=== PATIENT | female | born 1955 | race Caucasian/White ===

== ENCOUNTER → 2023-07-19 06:49 | Outpatient (REF) | payer MEDICARE, OTHER, SELFPAY | LOC: HWWDC 06:49 | PROVIDERS: ATTENDING PHYSICIAN Family Medicine | DX: Z12.31 Encounter for screening mammogram for malignant neoplasm of breast (principal) | CPT/HCPCS: 77063; 77067 ==

== ENCOUNTER → 2023-07-25 08:26 | Outpatient (REF) | payer MEDICARE, OTHER, SELFPAY | LOC: WDC 08:26 | PROVIDERS: ATTENDING PHYSICIAN Family Medicine | DX: R92.8 Other abnormal and inconclusive findings on diagnostic imaging of breast (principal) | CPT/HCPCS: 77065 ==

== ENCOUNTER → 2023-07-31 06:42 | Outpatient (REF) | payer MEDICARE, OTHER, SELFPAY ==
--- NOTE | 2023-07-31 09:17 | OID.BR.INTR ---
KAELYND Breast Navigator - Initial
- -
Date of Contact: 07/31/23
Met with patient. Patient given written information on navigator services available at [facility]. Will follow up as needed per protocol.
== END ==
LOC: WDC 06:42
PROVIDERS: ATTENDING PHYSICIAN Family Medicine
DX: R92.1 Mammographic calcification found on diagnostic imaging of breast (principal)
CPT/HCPCS: 88305; 19081; 76098; A4648

== ENCOUNTER → 2023-08-03 08:15 | Outpatient (REF) | payer MEDICARE, OTHER, SELFPAY | LOC: RAD 08:15 | PROVIDERS: ATTENDING PHYSICIAN Internal Medicine Gastroenterology; FAMILY PHYSICIAN Family Medicine | DX: R13.19 Other dysphagia (principal); K76.0 Fatty (change of) liver, not elsewhere classified | CPT/HCPCS: 74221; 76700 ==

== ENCOUNTER → 2024-02-22 06:20 | Day surgery (SDC) | payer MEDICARE, OTHER, SELFPAY | LOC: GI 06:20 | PROVIDERS: ATTENDING PHYSICIAN Internal Medicine Gastroenterology | DX: K22.89 Other specified disease of esophagus (principal); K44.9 Diaphragmatic hernia without obstruction or gangrene; K31.89 Other diseases of stomach and duodenum; R13.10 Dysphagia, unspecified | CPT/HCPCS: 43239; 88305; 88342 ==

== ENCOUNTER → 2024-08-22 14:48 | Outpatient (REF) | payer MEDICARE, OTHER, SELFPAY | LOC: WDC 14:48 | PROVIDERS: ATTENDING PHYSICIAN Family Medicine | DX: Z12.31 Encounter for screening mammogram for malignant neoplasm of breast (principal) | CPT/HCPCS: 77063; 77067 ==

== ENCOUNTER 2024-09-30 14:59 | Inpatient (IN) | payer MEDICARE, OTHER, SELFPAY ==
[2024-09-30] VITALS (7 sets, daily range): BP systolic 114–167; BP diastolic 69–93; BMI 28.3; BMI 26.9
--- NOTE | 2024-09-30 09:52 | ED.GENMED ---
History of Present Illness
General
Chief Complaint: Musculo-Skeletal Complaint
Source: patient, spouse and ambulance crew
Exam Limitations: none
Time Seen by Provider: 09/30/24 09:43
Nursing documentation reviewed up to this point in time: agreed with
History of Present Illness
History of Present Illness:
The patient is a 69-year-old female who presented with leg pain after a fall. She reports losing her balance while on the steps due to being startled by her dog. She believes she twisted her leg and landed on her side. The patient heard a 'pop' at
the time of injury. There is no pain reported in the head, neck, or pelvis, and she did not experience loss of consciousness. She does not report additional pain beyond her leg, although she has a history of neuropathy affecting her ability to sense
pain. Upon examination, she points to pain located around her upper leg. Initial assessment shows that she is neurovascularly intact, with good pulse and some movement in the toes.
The patient mentions that she was administered fentanyl for pain and agreed to receive additional medication to manage pain during imaging. She will be given Dilaudid to ensure appropriate pain control before undergoing X-ray imaging to assess for
fractures in the femur or hip.
Past History
Past History
ED Past Medical History: HTN and Hypercholesterolemia
ED Past Surgical History: Cholecystectomy and Orthopedic
Social History
Tobacco: Non-smoker
Personal:
Living: with family
Review of Systems
Review of Systems
Allergies reviewed?: Yes
All Other Systems: ROS reviewed and negative except as documented in HPI and ROS
Phy Exam
Physical Exam
Physical Exam:
GENERAL: Alert , in no apparent distress
EYE: pupils equal and reactive
NECK: Supple, no significant adenopathy.
ENT: o/p clr, mmm.
CARDIAC: Regular rate and rhythm .
LUNGS: Clear breath sounds bilaterally, no acute respiratory distress, no wheezes/rales/rhonchi
ABDOMEN: Soft, without focal tenderness, no r/g, no cvat
NEUROLOGICAL: Alert and oriented, no focal neuro deficits
SKIN: Warm and dry, skin intact.
MUSCULOSKELETAL: Left leg in a traction splint, tenderness throughout the mid thigh region no pain to the pelvis no pain to the knee moreno able to move the ankle and toes good distal pulses no edema, well perfused.
PSYCH: Normal and appropriate interaction.
Course
Orders/Labs/Results
Orders:
Orders
09/30/24 09:42
Femur, Left 2 View [CR Femur - Left Min 2 Vw] Urgent
Comment:
Reason For Exam: pain, injury, deformity
09/30/24 09:43
Tibia/Fibula, Left 2 View [CR Leg Tibia/fibula Left 2 Vw] Urgent
Comment:
Reason For Exam: fall
09/30/24 09:46
Pelvis, 1 or 2 Views CR [CR Pelvis - 1 Or 2 Views ] Urgent
Comment:
Reason For Exam: left hip femur pain after fall
09/30/24 09:53
HYDROmorphone [Dilaudid] 0.5 mg IV NOW STA
09/30/24 10:02
BMP [Basic Metabolic Panel] Urgent
CBC/With Diff [Complete Blood Count/With Diff] Urgent
09/30/24 11:13
CT Pelvis W/o Iv Contrast Urgent
Comment:
Reason For Exam: left femur fx eval for femoral neck fx
09/30/24 11:42
Fentanyl Citrate/Pf [Sublimaze] 65 mcg IV NOW STA
Abnormal Lab Results
09/30/24
10:02
Abs Immat Gran (auto) 0.1 H 10^3/uL
(0-0.05)
Absolute Monos (auto) 0.8 H 10^3/uL
(0.1-0.6)
Absolute Eos (auto) 0.8 H 10^3/uL
(0-0.7)
Immature Gran % 0.6 H %
(0-0.5)
Eosinophils % 8.5 H %
(0-6)
Chloride 108 H mmol/L
(98-107)
BUN 20 H mg/dl
(7-17)
Glucose 122 H mg/dl
(70-99)
09/30/24 10:02
09/30/24 10:02
Vital Signs
Initial and Last Documented VS:
Initial Vital Signs
BP
151/83
09/30/24 09:30
Last Documented Vital Signs
Temp Pulse Resp BP Pulse Ox
97.9 F 84 17 157/93 96
09/30/24 09:32 09/30/24 11:00 09/30/24 11:00 09/30/24 10:00 09/30/24 10:15
Procedures
Splinting/Sling Placement
Left Leg:
Procedure completed by: Myself
Pre-splint extermity exam: neurovascular intact
Type of splint: posterior long leg
Splint material: fiberglass
Splint checked by provider?: Yes
Normal distal neurovascular exam?: Yes
MDM/Problems Addressed
MDM/Problems Addressed:
69-year-old female presenting after a fall landing hitting her leg directly denies additional concerns. Neurovascular intact to the left leg does have tenderness to the femur plan for x-rays for further assessment. X-ray showing midshaft femur
fracture. Case discussed with Ortho plan to take to the OR tomorrow morning. Placed in a long-leg splint otherwise neuro vastly intact. Stable throughout ER stay.
*Critical Care Note
Total Time (30-74mins, 75-104mins- exclusive of procedures): Not Applicable
ED Attending Note
-
Portions of this chart may have been created with voice recognition software.� Occasional wrong word or��sound alike� substitutions may have occurred due to the inherent limitations of voice recognition software.
Discharge Plan
Departure
Patient Disposition: Admit
Date of Disposition: 09/30/24
Time of Disposition: 11:58
Admit to: Med/Surg
Admit to doctor: Mandy
Presentation/result/management discussed w/ accepting MD/DO: Hospitalist
Patient with high blood pressure during this ER visit?: No
Condition: Good
Covid-19: Not Applicable
Discharge Problem:
Femur fracture
Prescriptions:
No Action
atorvastatin 40 MG tablet
40 mg PO QPM
enalapril maleate 10 MG tablet
20 mg PO BID
diltiazem HCl 240 MG capsule,extended release 24 hr
240 mg PO DAILY
hydrochlorothiazide 12.5 MG capsule
12.5 mg PO DAILY
Referrals:
Floridalma Mckeon MD [Family Provider, Family Practice]
Interventions
Interventions:
*Risk Screen - Suicide Last Done: 09/30/24 09:32
*General Assessment Last Done: 09/30/24 09:32
*Neglect/Abuse Screening Last Done: 09/30/24 09:32
*ED- Fall Risk Assessment Last Done: 09/30/24 09:32
*ED COVID-19 Vaccine History Last Done: 09/30/24 09:32
ED-Musculoskeletal Assessment Last Done: 09/30/24 09:56
Discharge Date and Time
Print Language: TOGOLESE
[2024-09-30] MEDS: DILAUDID 0.5 MG IV (10:01)
[2024-09-30 10:12] LABS: % Basophils 0.6 % (0-2); % Eosinophils 8.5 % (0-6); % Immature Granulocytes 0.6 % (0-0.5); % Lymphocytes 23.4 % (20.5-51.1); % Monocytes 8.6 % (1.7-9.3); % Neutrophils 58.3 % (42.2-75.2); Absolute Basophils 0.1 10^3/uL (0-0.2); Absolute Eosinophils 0.8 10^3/uL (0-0.7); Absolute Immature Granulocytes 0.1 10^3/uL (0-0.05); Absolute Lymphocytes 2.2 10^3/uL (1.2-3.4); Absolute Monocytes 0.8 10^3/uL (0.1-0.6); Absolute Neutrophils 5.5 10^3/uL (1.4-6.5); Hematocrit 43.3 % (37.0-47.0); Hemoglobin 14.3 g/dL (12.0-16.0); Mean Corpuscular Hgb 29.4 pg (27.0-31.0); Mean Corpuscular Volume 88.9 fL (81.0-99.0); Mean Platelet Volume 10.4 fL (7.4-10.4); Nucleated Red Blood Cells % 0 %; Platelet Count 299 10^3/uL (130-400); Red Blood Cell Count 4.87 10^6/uL (4.20-5.40); Red Cell Dist. Width 13.4 % (11.5-14.5); White Blood Cell Count 9.5 10^3/uL (4.8-10.8)
[2024-09-30 10:39] LABS: Blood Urea Nitrogen 20 mg/dl (7-17); Calcium 9.5 mg/dl (8.4-10.2); Carbon Dioxide 28 mmol/L (22-30); Chloride 108 mmol/L (98-107); Estimated Creatinine Clearance 46 ml/min; Glucose 122 mg/dl (70-99); Potassium 4.2 mmol/L (3.5-5.1); Sodium 143 mmol/L (135-145); eGFR > 60.00
[2024-09-30] MEDS: SUBLIMAZE 65 MCG IV (11:46)
--- NOTE | 2024-09-30 12:19 | HPS.HSE ---
Family Physician
-
Family Physician: Floridalma Mckeon MD
Chief Complaint
-
LLE pain
History of Present Illness
69F HTN HLD Osteoporosis Neuropathy LE's b/l up to knees p/w LLE pain swelling following fall. Startled by her dog, she twisted and landed on her side with an associate 'pop' sound. Unable to get up from fall, patient contacted EMS services. VSS,
labs unremarkable, imaging noted left midshaft spiral fracture femur.
Medical History
Past Medical History
Past Medical History: Reports Other (as above)
Past Surgical History: Reports Other (as above)
Social History
Tobacco: Non-smoker
Alcohol: None
Drug: None
Personal:
Living: With Family
Family History
Family History: CAD (Both Parentes)
Allergies / Home Medications
Allergies reflects when Allergies were last updated in [facility].
Home Medications with original date entered in [facility]
Allergy/Medication List:
Allergies
Allergy/AdvReac Type Severity Reaction Status Date / Time
No Known Allergies Allergy Verified 09/30/24 09:30
Home Medications
atorvastatin 40 mg tablet 40 mg PO QPM High Cholesterol 06/01/13
diltiazem HCl 240 mg capsule,24 hr,extended release 240 mg PO DAILY Blood Pressure 06/01/13
enalapril maleate 10 mg tablet 20 mg PO BID Blood Pressure 06/01/13
hydrochlorothiazide 12.5 mg capsule 25 mg PO DAILY Blood Pressure 06/01/13
aspirin 81 mg tablet,delayed release 81 mg PO HS Heart Disease/Condition 09/30/24
calcium carbonate (Calcium 600) 600 mg PO DAILY Supplement 09/30/24
cholecalciferol (vitamin D3) 50 mcg (2,000 unit) tablet (Vitamin D3) 50 mcg PO DAILY Supplement 09/30/24
docusate sodium 100 mg capsule (Colace) 300 mg PO HS Constipation 09/30/24
omeprazole 20 mg capsule,delayed release 20 mg PO DAILY Gastrointestinal Issue 09/30/24
psyllium 1 packet PO DAILY Constipation 09/30/24
Review of Systems
-
A 12 point ROS was completed and negative except as noted: Yes
Constitutional: Reports Other (as below)
Physical Exam
Vital Signs
Vital Signs
Temp Pulse Resp BP Pulse Ox
97.9 F 81 16 157/93 97
09/30/24 09:32 09/30/24 12:00 09/30/24 12:00 09/30/24 10:00 09/30/24 12:00
Physical Exam
General: Other (as below)
Laboratory Results
-
09/30/24 10:02
09/30/24 10:02
Impression/Plan
-
ROS
General: Denies fever chills night sweats unexpected weight loss
Neuro: Reports history Neuropathy loss of sensation LE's b/l up to knees Denies seizure shaking loss of consciousness dizziness vertigo
Psych: denies depression hallucinations confusion manic episodes
Endocrine: Denies polyuria polydipsia polyphagia heat/cold intolerance
HEENT: Denies blindness visual disturbances epistaxis
Pulmonary: denies coughing hemoptysis sneezing sob dyspnea on exertion
Cardiovascular: denies chest pain palpitations leg swelling
Hematology: denies signs symptoms of anemia easy bruising/bleeding
Gastrointestinal: reports constipation denies nausea vomiting diarrhea hematemesis hematochezia melena
Genito-Urinary: denies retention incontinence dysuria
Musculoskeletal: LLE pain
Dermatology: denies rash laceration bruising
Physical Exam
General: No pallor, cyanosis, or jaundice.
HEENT: Throat clear. PERRLA Normocephalic atraumatic
NECK: Supple. No JVD Carotid Bruits
RESPIRATORY: Lungs clear to auscultation. No crackles wheezes stridor
CVS: S1, S2 normal. RRR. No murmur, rub or gallop.
ABDOMEN: Soft, non-tender. No distension. BS+/normal.
EXTREMITIES: LLE swelling, splint in place, LLE shorter compared to RLE
MANAGER SEMICONDUCTOR: AOx3 conversant coherent
IMPRESSION:
69F HTN HLD Osteoporosis Neuropathy LE's b/l up to knees p/w LLE pain swelling following fall. Startled by her dog, she twisted and landed on her side with an associate 'pop' sound. Unable to get up from fall, patient contacted EMS services. VSS,
labs unremarkable, imaging noted left midshaft spiral fracture femur.
PLAN:
#left midshaft spiral fracture femur following mechanical fall
med surg admit
Orthopedic eval
NPO after midnight for OR as per Orthopedic
check pre-op EKG
Cardiac eval requested pre-op cardiac risk stratification
pain control prn IV dilaudid mod severe pain, Tylenol prn mild pain
#Constipation
bowel regimen
#HTN
cont home Cardizem Enalapril HCTZ w holding parameters
#HLD
cont statin
DVT ppx SCD
GI ppx Protonix
Full Code
Discussed with patient. Offered to update family, patient declined, reported comfortable updating family herself.
I spent a total of 76 minutes with the patient or on the floor. More than 50% of this time involved counseling and coordination of care.
--- NOTE | 2024-09-30 15:39 | CON.CAR ---
Addendum entered and electronically signed by Benji Gonzalez MD 09/30/24 19:38:
69-year-old woman admitted today with a spiral fracture of the proximal to mid left femur after a mechanical fall.
PMH/PSH: Hypertension, hyperlipidemia, osteoporosis, peripheral neuropathy, MAFLD, diverticulitis, cholecystectomy, herniorrhaphy, breast biopsy, other minor procedures
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
Meds allergies per summary screen
ROS: rest of history per Ambika Francois as documented below
167/87, 95, 18, Patient said she is not in distress, as long as she is still. Head and neck exam unremarkable, lungs are clear, regular rate and rhythm without murmur, abdomen benign, left leg in immobilizer, without substantial edema
ECG pending
Echo July 2022: EF 55 to 60% no significant valve disease
Exercise treadmill test June 2022: 6 [address] protocol normal [address] segment response to exercise
Normal CBC, normal BMP
Impression:
See below as per Ambika Francois. Reviewed in detail and agree, unless otherwise specified.
Plan:
From a cardiac standpoint, she is stable and can proceed to open reduction and internal fixation of left femoral fracture at acceptable cardiac risk.
She is tachycardia, suspect mild volume depletion. Will administer IV fluid.
Original Note:
Consultation
Consultation Request
Date/Time Consultation Requested: 09/30/2024
Date/Time Consultation Performed: 09/30/2024
Requesting Provider: Dr. Osei
Performing Provider: Ambika Francois PA-C for Dr. KELY Gonzalez
Reason for Consultation: Preoperative clearance
Medical History
-
History of Present Illness:
Patient is a 69-year-old female with past medical history significant for hypertension, hyperlipidemia, osteoporosis, peripheral neuropathy, diverticulitis and fatty liver who presents to emergency department 09/30/2024 after suffering mechanical
fall. Patient reports she was on the steps when her 120 pound Rottweiler dog pushed her resulting in mechanical fall where she heard a pop and then had severe pain of her left leg. She was brought in by EMS. X-ray and pelvis CT demonstrated
spiral fracture from proximal to mid femur. Patient was seen by orthopedics and plan is for surgical repair on 10/01/2024. Patient reports she has no prior cardiac history with unremarkable stress test and echocardiogram in 2022. She does have a
family history with mom and dad both having high blood pressure and heart issues in their 70s. Prior to her fall she reports she was fairly active around the house and in the yard with gardening. She is able to walk up and down a flight of steps
without having to stop. She denies having exertional chest pain, shortness of breath, dizziness, lightheadedness, syncope or palpitations.
Past medical history:
Hypertension
Hyperlipidemia
Osteoporosis
Peripheral neuropathy
Diverticulitis
Fatty liver
Past Medical History
Past Medical History: Other (See HPI)
Past Surgical History: Cholecystectomy, Orthopedic (Ganglion cyst removal of left foot) and Other (Left inguinal hernia repair, wisdom teeth extraction, left breast biopsy)
Social History
Tobacco: Non-Smoker
Alcohol: None
Drug: None
Personal:
Living: With Family
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
Family History
Family History: Other (Father had hypertension and CAD, at 75. Mom had hypertension and CAD at 79)
Allergies / Home Medications
Allergy/AdvReac Type Severity Reaction Status Date / Time
No Known Allergies Allergy Verified 09/30/24 09:30
�Medication �Instructions �Recorded �Confirmed �Type
atorvastatin 40 mg tablet 40 mg PO QPM High Cholesterol 06/01/13 09/30/24 History
diltiazem HCl 240 mg capsule,24 240 mg PO DAILY Blood Pressure 06/01/13 09/30/24 History
hr,extended release
enalapril maleate 10 mg tablet 20 mg PO BID Blood Pressure 06/01/13 09/30/24 History
hydrochlorothiazide 12.5 mg capsule 25 mg PO DAILY Blood Pressure 06/01/13 09/30/24 History
aspirin 81 mg tablet,delayed 81 mg PO HS Heart Disease/Condition 09/30/24 09/30/24 History
release
calcium carbonate (Calcium 600) 600 mg PO DAILY Supplement 09/30/24 09/30/24 History
cholecalciferol (vitamin D3) 50 50 mcg PO DAILY Supplement 09/30/24 09/30/24 History
mcg (2,000 unit) tablet (Vitamin
D3)
docusate sodium 100 mg capsule 300 mg PO HS Constipation 09/30/24 09/30/24 History
(Colace)
omeprazole 20 mg capsule,delayed 20 mg PO DAILY Gastrointestinal 09/30/24 09/30/24 History
release Issue
psyllium 1 packet PO DAILY Constipation 09/30/24 09/30/24 History
Review of Systems
-
History Source: Patient
All other systems: Negative unless noted
Physical Exam
Vital Signs
Temp Pulse Resp BP Pulse Ox
98.1 F 92 18 114/69 96
09/30/24 15:36 09/30/24 15:36 09/30/24 15:36 09/30/24 15:36 09/30/24 15:36
GEN: No distress, awake, Ox3, lying in bed
HEENT: supple, anicteric, mmm
LUNGS: CTA anteriorly, no wheezes/rales
CV: Reg, S1/S2, no murmur, rub or gallop
ABD: soft, BS+, NT/ND
EXT: Left leg in soft cast/Hermes wrap, trace edema left lower extremity, no edema on right
NEURO: Gross non-focal
SKIN: No rash, warm, dry, pink
Lab Results
09/30/24 10:02
09/30/24 10:02
Impression / Plan
-
PCP: Floridalma Mckeon MD
Family Physician: Floridalma Mckeon MD
Impression:
Presented 09/30/2024 with mechanical fall and left leg pain
Spiral fracture from proximal to mid left femur
Preoperative cardiac risk assessment
Hypertension
Hyperlipidemia
Osteoporosis
Peripheral neuropathy
Diverticulitis
Fatty liver
Treadmill exercise stress test 07/18/2022: 6:00 on Jesus protocol, 7 METS, 90% PMHR. EKG negative for ischemia. Normal blood pressure response. Occasional PACs and PVCs. Average exercise tolerance. DTS +6
Echocardiogram 08/15/2022: EF 55 to 60%. Normal regional wall motion. No significant valvular disease
- Presented 09/30/2024 with mechanical fall and left leg pain. X-ray/CT demonstrated spiral fracture from proximal to mid left femur. Seen by orthopedics with plan for surgical repair in OR on 10/01/2024
- Patient has no prior history of coronary artery disease. She denies chest pain or shortness of breath with good functional capacity prior to fall.
- Check pre-op EKG
- Echocardiogram in July 2022 showed preserved ejection fraction with no regional wall motion abnormalities and no significant valvular disease
- Treadmill exercise stress test in June 2022 showed average exercise tolerance with normal blood pressure response, occasional PACs and PVCs and no evidence of exercise-induced ischemia. DTS +6.
- Patient is low cardiac risk and may proceed with OR 10/01/2024.
- Monitor patient on telemetry postoperatively
- History of hypertension maintained on diltiazem 240 mg and enalapril 20 mg twice a day as outpatient. Patient reports to me she was not on HCTZ prior to admission. Would hold for now given she is at increased risk for blood loss from surgery and
femur fracture. Monitor blood pressure closely postoperatively.
- Continue atorvastatin for hyperlipidemia
HPI 09/30/2024:
Patient is a 69-year-old female with past medical history significant for hypertension, hyperlipidemia, osteoporosis, peripheral neuropathy, diverticulitis and fatty liver who presents to emergency department 09/30/2024 after suffering mechanical
fall. Patient reports she was on the steps when her 120 pound Rottweiler dog pushed her resulting in mechanical fall where she heard a pop and then had severe pain of her left leg. She was brought in by EMS. X-ray and pelvis CT demonstrated
spiral fracture from proximal to mid femur. Patient was seen by orthopedics and plan is for surgical repair on 10/01/2024. Patient reports she has no prior cardiac history with unremarkable stress test and echocardiogram in 2022. She does have a
family history with mom and dad both having high blood pressure and heart issues in their 70s. Prior to her fall she reports she was fairly active around the house and in the yard with gardening. She is able to walk up and down a flight of steps
without having to stop. She denies having exertional chest pain, shortness of breath, dizziness, lightheadedness, syncope or palpitations.
Data Reviewed
-
EKG: Report Reviewed by me, Discussed with Physician and Discussed with Patient
Radiology: Report Reviewed by me, Discussed with Physician and Discussed with Patient
CT Scan: Report Reviewed by me, Discussed with Physician and Discussed with Patient
Labs: Labs Reviewed by me, Discussed with Physician and Discussed with Patient
Old Records: Reviewed
[2024-09-30] MEDS: LIPITOR 40 MG PO (16:48)
[2024-09-30] MEDS: PROTONIX 40 MG PO (16:48)
--- NOTE | 2024-09-30 17:03 | CON.ORTHO ---
Consultation
-
Date/Time Consultation Performed: 09/30/2024 5 PM
Consultation - Orthopedics
History
HPI: 69-year-old female history of peripheral neuropathy presented to the emergency department complaints of left leg pain and inability to bear weight. She was subsequently diagnosed with a left femoral shaft fracture. She was placed in a
long-leg splint admitted to the hospitalist service. Orthopedics was consulted for further evaluation and treatment. This afternoon patient reports that she is comfortable at rest in splint. She reports that her dog knocked her over and she felt
a crack in her left leg inability to bear weight. She is accompanied today by her . She reports baseline peripheral neuropathy. Denies history of diabetes.
Allergies / Home Medications
Past medical history: Hypertension, hyperlipidemia, osteoporosis, peripheral neuropathy, diverticulitis, fatty liver
Past surgical history: Cholecystectomy, ganglion cyst removal left foot, left inguinal hernia repair, left breast biopsy, wisdom teeth extraction
Social history: Non-smoker, lives at home with , retired
Family history: Not pertinent
Allergy/AdvReac Type Severity Reaction Status Date / Time
No Known Allergies Allergy Verified 09/30/24 09:30
�Medication �Instructions �Recorded
atorvastatin 40 mg tablet 40 mg PO QPM High Cholesterol 06/01/13
diltiazem HCl 240 mg capsule,24 240 mg PO DAILY Blood Pressure 06/01/13
hr,extended release
enalapril maleate 10 mg tablet 20 mg PO BID Blood Pressure 06/01/13
hydrochlorothiazide 12.5 mg capsule 25 mg PO DAILY Blood Pressure 06/01/13
aspirin 81 mg tablet,delayed 81 mg PO HS Heart Disease/Condition 09/30/24
release
calcium carbonate (Calcium 600) 600 mg PO DAILY Supplement 09/30/24
cholecalciferol (vitamin D3) 50 50 mcg PO DAILY Supplement 09/30/24
mcg (2,000 unit) tablet (Vitamin
D3)
docusate sodium 100 mg capsule 300 mg PO HS Constipation 09/30/24
(Colace)
omeprazole 20 mg capsule,delayed 20 mg PO DAILY Gastrointestinal 09/30/24
release Issue
psyllium 1 packet PO DAILY Constipation 09/30/24
Vital Signs / Lab Results
Temp Pulse Resp BP Pulse Ox
98.3 F 95 18 167/87 97
09/30/24 16:23 09/30/24 16:23 09/30/24 16:23 09/30/24 16:23 09/30/24 16:23
09/30/24 10:02
09/30/24 10:02
10 point review systems reviewed and negative unless otherwise stated
General: Pleasant, no acute distress at rest
Musculoskeletal left lower extremity
Splint in place
Skin intact in exposed skin
Moderate swelling to the thigh
Thigh soft compressible
Positive EHL, FHL, sensation intact to light touch in all dispositions distally although diminished at baseline per patient
Brisk cap refill
No other areas of bony tenderness palpation or crepitus along bones or joints after she examination
Diagnostic studies
X-rays left femur show fairly simple transverse displaced diaphyseal femoral shaft fracture fracture. CT scan pelvis shows no ipsilateral femoral neck fracture
Assessment / Plan
69-year-old female status post mechanical fall left displaced femoral shaft fracture. Had a long detail discussion with the patient and her regarding diagnosis and treatment options. Discussed postsurgical nonsurgical options. After
discussion with me she elected to proceed with operative fixation of the left femoral shaft fracture to include intramedullary nail fixation. We discussed risks benefits and alternatives to surgery. Discussed the usual expected perioperative
postoperative course. After discussion written informed consent was obtained
Nonweightbearing left lower extremity in splint
N.p.o. midnight
Please hold DVT prophylaxis in preparation for OR
Medical management per primary team
Plan: 2 OR tomorrow for operative fixation left femoral shaft fracture pending OR availability medical clearance
[2024-09-30] MEDS: LR 1000 IV (20:57)
[2024-09-30] MEDS: VASOTEC 20 MG PO (20:59)
[2024-09-30] MEDS: SENOKOT-S 1 TABLET PO (21:00)
[2024-10-01] VITALS (8 sets, daily range): BP systolic 114–157; BP diastolic 66–84
[2024-10-01] MEDS: DILAUDID 0.5 MG IV ×2 (03:58→15:36)
[2024-10-01] MEDS: ZOFRAN 4 MG IV (05:06)
[2024-10-01 06:07] LABS: Glucose - Point of Care 103 mg/dl (70-99)
--- NOTE | 2024-10-01 06:32 | W.PN.HOSP.TC ---
Today's Communication/Plan
-
see a/p
Assessment / Plan
Assessment / Plan
Physical Exam
General: No pallor, cyanosis, or jaundice.
HEENT: Throat clear. PERRLA Normocephalic atraumatic
NECK: Supple. No JVD Carotid Bruits
RESPIRATORY: Lungs clear to auscultation. No crackles wheezes stridor
CVS: S1, S2 normal. RRR. No murmur, rub or gallop.
ABDOMEN: Soft, non-tender. No distension. BS+/normal.
EXTREMITIES: LLE swelling, splint in place, LLE shorter compared to RLE
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
IMPRESSION:
69F HTN HLD Osteoporosis Neuropathy LE's b/l up to knees p/w LLE pain swelling following fall. Startled by her dog, she twisted and landed on her side with an associate 'pop' sound. Unable to get up from fall, patient contacted EMS services. VSS,
labs unremarkable, imaging noted left midshaft spiral fracture femur.
PLAN:
#left midshaft spiral fracture femur following mechanical fall
#Traumatic fracture likely osteoporosis related
med surg admit
Orthopedic eval
NPO for OR as per Orthopedic
EKG reviewed
Cardiac eval appreciated acceptable cardiac risk for surgical intervention
pain control prn IV dilaudid mod severe pain, Tylenol prn mild pain
#Constipation
bowel regimen
#HTN
cont home Cardizem Enalapril w holding parameters
#HLD
cont statin
DVT ppx SCD
GI ppx Protonix
Full Code
I spent a total of 40 minutes with the patient or on the floor. More than 50% of this time involved counseling and coordination of care.
Anticipated Discharge: > 48 hours
Subjective/Interval History
-
Date of Service: October 01, 2024
Objective Data
-
Labs:
Laboratory Results
10/01/24
06:00
WBC Pending
Hgb Pending
Hct Pending
Plt Count Pending
Sodium Pending
Potassium Pending
Chloride Pending
Carbon Dioxide Pending
BUN Pending
Creatinine Pending
Glucose Pending
Calcium Pending
Vital Signs:
Vital Signs
Temp Pulse Resp BP Pulse Ox
98.7 F 90 18 140/83 97
09/30/24 23:25 09/30/24 23:25 09/30/24 23:25 09/30/24 23:25 09/30/24 23:25
I&O
09/29/24 09/30/24 10/01/24
06:59 06:59 06:59
Output Total 600 / 600
Balance -600 / -600
[2024-10-01 07:34] LABS: Hematocrit 38.9 % (37.0-47.0); Mean Corp Hgb Conc. 33.4 g/dL (33.0-37.0); Mean Corpuscular Hgb 29.4 pg (27.0-31.0); Mean Platelet Volume 10.2 fL (7.4-10.4); Platelet Count 212 10^3/uL (130-400); Red Blood Cell Count 4.42 10^6/uL (4.20-5.40); Red Cell Dist. Width 13.5 % (11.5-14.5); White Blood Cell Count 10.8 10^3/uL (4.8-10.8)
[2024-10-01 07:49] LABS: Blood Urea Nitrogen 16 mg/dl (7-17); Calcium 8.8 mg/dl (8.4-10.2); Carbon Dioxide 23 mmol/L (22-30); Chloride 110 mmol/L (98-107); Estimated Creatinine Clearance 58 ml/min; Glucose 105 mg/dl (70-99); Potassium 4.1 mmol/L (3.5-5.1); Sodium 140 mmol/L (135-145); eGFR > 60.00
[2024-10-01] MEDS: PROTONIX 40 MG PO (08:17)
[2024-10-01] MEDS: SENOKOT-S 1 TABLET PO (08:17)
[2024-10-01] MEDS: VITAMIN D3 (cholecalciferol) 50 MCG PO (08:18)
[2024-10-01] MEDS: VASOTEC 20 MG PO ×2 (08:18→22:18)
[2024-10-01] MEDS: CARDIZEM CD 240 MG PO (08:18)
[2024-10-01] MEDS: OSCAL CAL 500 500 MG PO (08:18)
[2024-10-01] MEDS: MIRALAX 17 GRAMS PO (08:20)
[2024-10-01] MEDS: LR 1000 IV (10:45)
[2024-10-01 12:22] LABS: Glucose - Point of Care 82 mg/dl (70-99)
--- NOTE | 2024-10-01 13:51 | CM ---
Reviewed the chart notes and spoke with the patient and her spouse at the bedside. The patient to OR today for fx repair. The patient resides with her spouse in a two story home with two steps to enter. The patient reports no DME/VN/SNF in the
past. The patient confirmed her pharmacy of choice is [facility]. CM continues to be available to patient/family and is monitoring medical plan for needs at discharge
Plan: Discharge plans will depend on the patient's progress.
[2024-10-01] MEDS: TYLENOL 650 MG PO (14:48)
--- NOTE | 2024-10-01 15:07 | W.PN.UPDATE ---
Update Note
Progress Note Update
ECG reviewed by me and is SR with nonspecific ST changes that is stable compared to ECG from 06/01/13. Patient scheduled for OR today.
--- NOTE | 2024-10-01 15:14 | PTCARENOTE ---
Patient transferred to . Report given to RN, Jill. Pt remains NPO for ORIF today sec for 17:30. No s/s of distress noted at this time.
--- NOTE | 2024-10-01 15:22 | TRANSFER ---
Received patient from 2 N via bed around 1510 in stable condition due to census management. Patient oriented to room. NWB to left le. Call tam in reach.
--- NOTE | 2024-10-01 15:25 | PN.CDI ---
CDI
- -
CDI:
Physician Documentation Request
Admit Date: 09/30/24 14:59
Dear Doctor Farnaz,
Please review the following and provide your response in the progress notes.
Clinical Indicators:
07/07/2022 Exams: OT Bone Density, Append(wrist); OT Bone Density, Axial
#CLINICAL INDICATION:
#...Patient is post-menopausal.
#FINDINGS:
#...10 year fracture risk:
#...Major osteoporotic fracture
#...12%
#...Hip fracture
#...2.5%
#IMPRESSION: Osteopenia.
#...There has been a statistically significant increase in bone mineral density
#...in the lumbar spine since the prior examination.
H+P, 09/30
#...HTN HLD Osteoporosis Neuropathy LE's b/l up to knees
#...p/w LLE pain swelling following fall.
#...Startled by her dog, she twisted and landed on her side with an associate 'pop' sound.
#...Unable to get up from fall,
#...imaging noted left midshaft spiral fracture femur.
Based on the above and your clinical assessment, please clarify the etiology of the left midshaft spiral fracture femur:
Multifactorial, low level trauma and age related osteoporosis
Traumatic fracture only
Other (please specify)
Type
Age-related
Drug induced (specify drug)
Idiopathic
Osteoporosis of disuse
Post traumatic
Post oophorectomy osteoporosis
Other (please specify)
Use of terms such as suspected, likely, concern for, or probable (associated with a specific diagnosis that is being evaluated, monitored, or treated as if it exists) are acceptable and can be coded in the inpatient setting, when documented at the
time of discharge.
Thank you,
Pennie Arrieta RN BSN CCDS
CDI Specialist
Please contact via tiger text
Please use your independent medical judgment in providing your response.
[2024-10-01 18:07] LABS: Glucose - Point of Care 93 mg/dl (70-99)
--- NOTE | 2024-10-01 20:32 | OR.RPT ---
Operative Report
Operative Report
Date
October 01, 2024
Anesthesia Type:
General
Operative Indications:
Displaced left femoral shaft fracture
Operative Findings :
Same with minimal to no comminution
Complications:
None
Implants:
340 x 10 mm gamma nail, 85 mm cephalomedullary screw, 45 x 5 mm and 42.5 x 5 mm distal interlocking screw
Procedure and Technique:
Left cephalomedullary nail insertion
INDICATIONS FOR PROCEDURE:
Patient is an active 69-year-old female was knocked over by her dog presented emergency department ultimately diagnosed with displaced left femoral shaft fracture. She is placed in a splint admitted to the hospital service and orthopedics was
consulted. After discussion about treatment options, patient elected to proceed with surgical intervention. Discussed risk benefits and alternatives to surgery. Discussed usual expected perioperative and postoperative course. After discussion
written informed consent was obtained for left cephalomedullary nail fixation left femoral shaft fracture.
OPERATIVE PROCEDURE:
Patient was seen and identified in the preoperative holding area. Operative extremities marked. All questions were addressed and answered. She was taken to the operating room where general anesthesia was administered. She was placed on a
fracture table. Contralateral leg was scissored. Operative extremity was placed a well-padded fracture boot. Provisional axial traction was performed and preoperative orthogonal fluoroscopic imaging showed actually appropriate alignment and
rotation of the fracture. Operative extremities then prepped and draped in normal sterile fashion. Timeout was performed again identifying the correct operative summary. Preoperative antibiotics were addressed. Small 4 cm incision was made
proximal to the greater trochanter. Starting pin was advanced to the appropriate depth and opening reamer was utilized after position was confirmed on orthogonal imaging. Ball-tipped guidewire was then passed distal to the fracture site to the
level of the proximal pole of the patella. Stepwise reaming was then performed to accept a 10 mm nail of appropriate length. This was inserted to appropriate depth and additional stab incision was made to accept the trocar through the aiming jig.
Guidewire was then placed through the femoral head and neck in a center center position. Attention was paid to minimize the tip apex distance. Appropriately sized cephalomedullary screw was then placed. Setscrew was deployed. Attention was then
turned to the distal femur where 2 distal interlocking screws were made through additional stab incisions via perfect [place] technique. Final imaging performed showed good reduction of the fracture. There is appropriate length and rotation noted.
Satisfactory since surgery, wound was copiously irrigated normal saline solution. Wounds were closed in layered fashion utilizing 0 Vicryl for deep fascial layer, 2-0 Vicryl for subcutaneous layer and yoni for skin. Aquacel dressings were
placed. Anesthesia was versed and patient was taken to PACU in stable condition. Postoperative plans will include weightbearing to patient's tolerance operative extremity. Recommend renally dosed Lovenox x 28 days for DVT prophylaxis. Plan to
see patient back 2 weeks postop for repeat clinical assessment removal of yoni.
Disposition:
PACU stable condition
[2024-10-01 21:30] LABS: Glucose - Point of Care 119 mg/dl (70-99)
--- NOTE | 2024-10-01 22:11 | PTCARENOTE ---
Pt arrived 2119 from PACU. Pt AAOX3 but drowsy. VSS. No complaints of pain. Neurovascular checks WNL. 3 primaseals with scant drainage. oriented to room and call tam. Bed locked and in lowest position. at bed side.
[2024-10-01] MEDS: LIPITOR 40 MG PO (22:24)
[2024-10-01] MEDS: SENOKOT-S PO (22:31)
[2024-10-02] VITALS (8 sets, daily range): BP systolic 91–121; BP diastolic 45–70; PULSE 103; O2SAT 97
[2024-10-02] MEDS: ANCEF 5 IV ×2 (01:43→10:45)
[2024-10-02] MEDS: LR 1000 IV (02:41)
[2024-10-02] MEDS: MIRALAX 17 GRAMS PO (08:08)
[2024-10-02] MEDS: LOVENOX 40 MG SC (08:09)
[2024-10-02] MEDS: COLACE 100 MG PO ×2 (08:09→20:20)
[2024-10-02] MEDS: PROTONIX 40 MG PO (08:10)
[2024-10-02] MEDS: VITAMIN D3 (cholecalciferol) 50 MCG PO (08:10)
[2024-10-02] MEDS: CARDIZEM CD 240 MG PO (08:10)
[2024-10-02] MEDS: VASOTEC 20 MG PO (08:10)
[2024-10-02] MEDS: ROXICODONE 5 MG PO (08:14)
[2024-10-02] MEDS: OSCAL CAL 500 500 MG PO (08:14)
[2024-10-02 08:18] LABS: Hematocrit 32.3 % (37.0-47.0); Hemoglobin 10.5 g/dL (12.0-16.0); Mean Corp Hgb Conc. 32.5 g/dL (33.0-37.0); Mean Corpuscular Volume 89.2 fL (81.0-99.0); Mean Platelet Volume 10.5 fL (7.4-10.4); Platelet Count 253 10^3/uL (130-400); Red Blood Cell Count 3.62 10^6/uL (4.20-5.40); Red Cell Dist. Width 13.6 % (11.5-14.5)
[2024-10-02 09:08] LABS: Blood Urea Nitrogen 19 mg/dl (7-17); Calcium 7.8 mg/dl (8.4-10.2); Carbon Dioxide 21 mmol/L (22-30); Chloride 108 mmol/L (98-107); Estimated Creatinine Clearance 45 ml/min; Glucose 139 mg/dl (70-99); Magnesium 2.4 mg/dl (1.6-2.3); Phosphorus 3.1 mg/dl (2.5-4.5); Potassium 4.3 mmol/L (3.5-5.1); Sodium 137 mmol/L (135-145); eGFR > 60.00
--- NOTE | 2024-10-02 09:38 | W.PN.HOSP.TC ---
Today's Communication/Plan
-
see a/p
Assessment / Plan
Assessment / Plan
Physical Exam
General: No pallor, cyanosis, or jaundice.
HEENT: Throat clear. PERRLA Normocephalic atraumatic
NECK: Supple. No JVD Carotid Bruits
RESPIRATORY: Lungs clear to auscultation. No crackles wheezes stridor
CVS: S1, S2 normal. RRR. No murmur, rub or gallop.
ABDOMEN: Soft, non-tender. No distension. BS+/normal.
EXTREMITIES: LLE swelling, splint in place, LLE shorter compared to RLE
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
IMPRESSION:
69F HTN HLD Osteoporosis Neuropathy LE's b/l up to knees p/w LLE pain swelling following fall. Startled by her dog, she twisted and landed on her side with an associate 'pop' sound. Unable to get up from fall, patient contacted EMS services. VSS,
labs unremarkable, imaging noted left midshaft spiral fracture femur.
PLAN:
#left midshaft spiral fracture femur following mechanical fall
#Traumatic fracture likely osteoporosis related
med surg admit
EKGs reviewed
Cardio eval appreciated
Orthopedic eval appreciated ORIF performed 10/01/24 WBAT Lovenox 28 days postop 2-3 wk follow up yoni removal
pain control prn oxycodone mod severe pain, Tylenol prn mild pain, IV dilaudid remains available for severe breakthrough pain
#Constipation
bowel regimen
#HTN
cont home Cardizem Enalapril w holding parameters
#HLD
cont statin
PT/OT appreciated SNF rehab
DVT ppx SCD
GI ppx Protonix
Full Code
I spent a total of 40 minutes with the patient or on the floor. More than 50% of this time involved counseling and coordination of care.
Anticipated Discharge: 24 - 48 hours
Subjective/Interval History
-
Date of Service: October 02, 2024
No acute distress. Overall reports feeling well since operation. Pain well controlled at rest.
Objective Data
-
Labs:
Laboratory Results
10/02/24
07:40
WBC 13.0 H
Hgb 10.5 L
Hct 32.3 L
Plt Count 253
Sodium 137
Potassium 4.3
Chloride 108 H
Carbon Dioxide 21 L
BUN 19 H
Creatinine 0.9
Glucose 139 H
Calcium 7.8 L
Vital Signs:
Vital Signs
Temp Pulse Resp BP Pulse Ox
98.7 F 103 16 121/70 95
10/02/24 07:35 10/02/24 07:35 10/02/24 07:35 10/02/24 07:35 10/02/24 07:35
I&O
10/01/24 10/02/24 10/03/24
06:59 06:59 06:59
Intake Total 1140 / 1140
Output Total 600 / 600 650 / 650
Balance -600 / -600 490 / 490
--- NOTE | 2024-10-02 10:21 | PN.CDI ---
CDI
- -
CDI:
Physician Documentation Request
Admit Date: 09/30/24 14:59
Dear Doctor Farnaz,
Please review the following and provide your response in the progress notes.
Clinical Indicators:
10/01 Status Post
#Operative Indications:
#...Displaced left femoral shaft fracture
#Implants:
#...340 x 10 mm gamma nail, 85 mm cephalomedullary screw,
#...45 x 5 mm and 42.5 x 5 mm distal interlocking screw
#Procedure and Technique:
#...Left cephalomedullary nail insertion
Laboratory Tests
09/30/24 10/01/24 10/02/24
10:02 06:56 07:40
Hgb 14.3 13.0 10.5 L
Based on the above and your clinical assessment, please clarify the diagnosis/condition evaluated, monitored and/or treated?
Acute blood loss anemia
Abnormal lab value, clinically insignificant
Other(please specify)
Use of terms such as suspected, likely, concern for, or probable (associated with a specific diagnosis that is being evaluated, monitored, or treated as if it exists) are acceptable and can be coded in the inpatient setting, when documented at the
time of discharge.
Thank you,
Pennie Arrieta RN BSN CCDS
CDI Specialist
Please contact via tiger text
Please use your independent medical judgment in providing your response.
--- NOTE | 2024-10-02 10:57 | W.PN.CARDCBS ---
Today's Communication / Plan
-
Outpt follow up with PCP if EKG remains stable
Please recall if needed
Impression / Plan
-
PCP: Floridalma Mckeon MD
Impression:
Presented 09/30/2024 with mechanical fall and left leg pain
Spiral fracture from proximal to mid left femur s/p OR October 01
Hypertension
Hyperlipidemia
Osteoporosis
Peripheral neuropathy
Diverticulitis
Fatty liver
Treadmill exercise stress test 07/18/2022: 6:00 on Jesus protocol, 7 METS, 90% PMHR. EKG negative for ischemia. Normal blood pressure response. Occasional PACs and PVCs. Average exercise tolerance. DTS +6
Echocardiogram 08/15/2022: EF 55 to 60%. Normal regional wall motion. No significant valvular disease
Plan:
Stable post op from cardiac standpoint
HR/bp stable.
Recent cardiac testing reviewed and stable
Cont statin
Check post op EKG, if stable, follow up with PCP at d/c
Please recall if needed.
Discussed with nursing.
HPI 09/30/2024:
Patient is a 69-year-old female with past medical history significant for hypertension, hyperlipidemia, osteoporosis, peripheral neuropathy, diverticulitis and fatty liver who presents to emergency department 09/30/2024 after suffering mechanical
fall. Patient reports she was on the steps when her 120 pound Rottweiler dog pushed her resulting in mechanical fall where she heard a pop and then had severe pain of her left leg. She was brought in by EMS. X-ray and pelvis CT demonstrated
spiral fracture from proximal to mid femur. Patient was seen by orthopedics and plan is for surgical repair on 10/01/2024. Patient reports she has no prior cardiac history with unremarkable stress test and echocardiogram in 2022. She does have a
family history with mom and dad both having high blood pressure and heart issues in their 70s. Prior to her fall she reports she was fairly active around the house and in the yard with gardening. She is able to walk up and down a flight of steps
without having to stop. She denies having exertional chest pain, shortness of breath, dizziness, lightheadedness, syncope or palpitations.
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
Subjective
Date of Service: October 02, 2024
Pt seen and examined. No complaints. No chest pain or shortness of breath.
Objective
Labs:
10/02/24 07:40
10/02/24 07:40
Labs
Hgb 10.5 g/dL (12.0-16.0) L 10/02/24 07:40
Hct 32.3 % (37.0-47.0) L 10/02/24 07:40
Plt Count 253 10^3/uL (130-400) 10/02/24 07:40
Sodium 137 mmol/L (135-145) 10/02/24 07:40
Potassium 4.3 mmol/L (3.5-5.1) 10/02/24 07:40
BUN 19 mg/dl (7-17) H 10/02/24 07:40
Creatinine 0.9 mg/dL (0.6-1.0) 10/02/24 07:40
Glucose 139 mg/dl (70-99) H 10/02/24 07:40
Vital Signs and I&O:
Vital Signs
Temp Pulse Resp BP Pulse Ox
98.7 F 103 16 121/70 95
10/02/24 07:35 10/02/24 07:35 10/02/24 07:35 10/02/24 07:35 10/02/24 07:35
Vital Signs
Temp Pulse Resp BP Pulse Ox
98.7 F 103 16 121/70 95
10/02/24 07:35 10/02/24 07:35 10/02/24 07:35 10/02/24 07:35 10/02/24 07:35
Intake & Output
09/30/24 10/01/24 10/02/24 10/03/24
06:59 06:59 06:59 06:59
Intake Total 1140 / 1140 490 / 490
Output Total 600 / 600 650 / 650
Balance -600 / -600 490 / 490 490 / 490
Physical Exam
Physical Exam
General: No acute distress, AAOX3
Neck: Negative JVD
Heart: Regular, Negative S3 positive S1/S2, Negative S4, No murmur
Lungs: CTA b/l, negative wheezes/rales/rhonchi
Abd: Positive BS, NT/ND, neg rebound/rigidity/guarding
Ext: Negative cyanosis/clubbing/edema
Neuro: nonfocal
[2024-10-02 11:48] LABS: ALT (SGPT) 115 U/L (0-35); AST (SGOT) 113 U/L (14-36); Albumin 3.4 g/dl (3.5-5.0); Alkaline Phosphatase 116 U/L (38-126); Direct Bilirubin 0.4 mg/dl (0.0-0.4); Total Bilirubin 0.7 mg/dl (0.2-1.3); Total Protein 5.3 g/dl (6.3-8.2)
[2024-10-02] MEDS: LR IV (11:59)
--- NOTE | 2024-10-02 12:05 | CM ---
Reviewed the chart notes and spoke with the patient at the bedside. Discussed PT recommendation of SNF prior to transitioning to home. Patient will consider, but needs to speak with her spouse. She has a first floor set-up with walk-in shower and
shower seat. CM continues to be available to patient/family and is monitoring medical plan for needs at discharge.
Plan: Discharge plans will depend on the patient's progress.
--- NOTE | 2024-10-02 17:10 | W.PN.ORTHO ---
Today's Communication / Plan
-
69-year-old female postop day 1 status post left long cephalomedullary nail for femoral shaft fracture doing well
Weightbearing as tolerated left lower extremity
PT OT
Pain control
DVT prophylaxis: Recommend renally dosed Lovenox x 28 days postop
Medical management per primary team
Plan: Follow-up with myself outpatient 2 to 3 weeks repeat clinical assessment plan removal of yoni
Subjective
.
.:
Patient resting comfortably in bed. She reports that she has been able to get out of bed and ambulate with walker
Vital Signs and Labs
.
Vital Signs and Labs:
Lab Results
10/02/24 07:40
10/02/24 07:40
Temp Pulse Resp BP Pulse Ox
98.7 F 87 16 91/45 95
10/02/24 15:40 10/02/24 15:40 10/02/24 15:40 10/02/24 15:40 10/02/24 15:40
Physical Exam
-
Musculoskeletal left lower extremity
Dressings in place with mild bloody drainage moderate swelling thigh, soft and compressible
Positive EHL, FHL, ankle dorsiflexion, plantarflexion sensation intact to light touch all distributions distally
[2024-10-02] MEDS: TYLENOL 650 MG PO (17:39)
[2024-10-02] MEDS: LIPITOR 40 MG PO (17:40)
[2024-10-02] MEDS: VASOTEC PO (20:19)
[2024-10-02] MEDS: ASPIR LOW (ENTERIC COATED) 81 MG PO (21:40)
[2024-10-03] MEDS: TYLENOL 650 MG PO ×3 (00:08→19:50)
[2024-10-03 06:34] LABS: Hematocrit 27.7 % (37.0-47.0); Hemoglobin 9.2 g/dL (12.0-16.0); Mean Corp Hgb Conc. 33.2 g/dL (33.0-37.0); Mean Corpuscular Hgb 29.9 pg (27.0-31.0); Mean Corpuscular Volume 89.9 fL (81.0-99.0); Mean Platelet Volume 10.6 fL (7.4-10.4); Platelet Count 219 10^3/uL (130-400); Red Blood Cell Count 3.08 10^6/uL (4.20-5.40); Red Cell Dist. Width 13.8 % (11.5-14.5); White Blood Cell Count 13.4 10^3/uL (4.8-10.8)
[2024-10-03 06:59] LABS: Blood Urea Nitrogen 21 mg/dl (7-17); Calcium 8.2 mg/dl (8.4-10.2); Carbon Dioxide 27 mmol/L (22-30); Chloride 109 mmol/L (98-107); Estimated Creatinine Clearance 45 ml/min; Glucose 105 mg/dl (70-99); Magnesium 2.4 mg/dl (1.6-2.3); Phosphorus 2.3 mg/dl (2.5-4.5); Potassium 4.2 mmol/L (3.5-5.1); Sodium 139 mmol/L (135-145); eGFR > 60.00
[2024-10-03 07:15] VITALS: BP 109/51
--- NOTE | 2024-10-03 08:10 | W.PN.HOSP.TC ---
Today's Communication/Plan
-
cont pain control
wound care
PT/OT
discharge planning SNF rehab likely tomorrow if remains stable continues to improve
Assessment / Plan
Assessment / Plan
Physical Exam
General: No pallor, cyanosis, or jaundice.
HEENT: Throat clear. PERRLA Normocephalic atraumatic
NECK: Supple. No JVD Carotid Bruits
RESPIRATORY: Lungs clear to auscultation. No crackles wheezes stridor
CVS: S1, S2 normal. RRR. No murmur, rub or gallop.
ABDOMEN: Soft, non-tender. No distension. BS+/normal.
EXTREMITIES: LLE wound dressing in place clean dry intact, significant improvement in swelling noted in comparison to initial presentation
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
IMPRESSION:
69F HTN HLD Osteoporosis Neuropathy LE's b/l up to knees p/w LLE pain swelling following fall. Startled by her dog, she twisted and landed on her side with an associate 'pop' sound. Unable to get up from fall, patient contacted EMS services. VSS,
labs unremarkable, imaging noted left midshaft spiral fracture femur.
PLAN:
#left midshaft spiral fracture femur following mechanical fall
#Traumatic fracture likely osteoporosis related
med surg admit
EKGs reviewed
Cardio eval appreciated
Orthopedic eval appreciated ORIF performed 10/01/24 WBAT Lovenox 28 days postop 2-3 wk follow up yoni removal
pain control prn oxycodone mod severe pain, Tylenol prn mild pain, IV dilaudid remains available for severe breakthrough pain
#Acute blood loss anemia post-op
monitor H&H, no need for transfusion at this time
check Iron studies B12 and Folate
#Mild Leukocytosis
developed post-op
suspect stress reactive
consistently afebrile, no significant signs of systemic infection
monitor off abx
#Constipation resolved
bowel regimen
#HTN
cont home Cardizem Enalapril w holding parameters
#HLD
cont statin
PT/OT appreciated SNF rehab
DVT ppx SCD
GI ppx Protonix
Full Code
I spent a total of 40 minutes with the patient or on the floor. More than 50% of this time involved counseling and coordination of care.
Anticipated Discharge: Within 24 hours
Subjective/Interval History
-
Date of Service: October 03, 2024
No acute distress, overall reports feeling well, denies constipation, reports recent normal bowel movement in morning. Pain reasonable well controlled with oral pain meds. Denies fever chills dysuria.
Objective Data
-
Labs:
Laboratory Results
10/03/24
05:46
WBC 13.4 H
Hgb 9.2 L
Hct 27.7 L
Plt Count 219
Sodium 139
Potassium 4.2
Chloride 109 H
Carbon Dioxide 27
BUN 21 H
Creatinine 0.9
Glucose 105 H
Calcium 8.2 L
Vital Signs:
Vital Signs
Temp Pulse Resp BP Pulse Ox
99 F 84 18 109/51 95
10/03/24 07:15 10/03/24 07:15 10/03/24 07:15 10/03/24 07:15 10/03/24 07:15
I&O
10/02/24 10/03/24 10/04/24
06:59 06:59 06:59
Intake Total 1140 / 1140 770 / 770
Output Total 650 / 650
Balance 490 / 490 770 / 770
[2024-10-03] MEDS: CARDIZEM CD PO (08:17)
[2024-10-03] MEDS: PROTONIX 40 MG PO (08:18)
[2024-10-03] MEDS: OSCAL CAL 500 500 MG PO (08:18)
[2024-10-03] MEDS: MIRALAX 17 GRAMS PO (08:18)
[2024-10-03] MEDS: VASOTEC PO (08:18)
[2024-10-03] MEDS: VITAMIN D3 (cholecalciferol) 50 MCG PO (08:19)
[2024-10-03] MEDS: COLACE 100 MG PO ×2 (08:19→19:50)
[2024-10-03] MEDS: LOVENOX 40 MG SC (08:19)
--- NOTE | 2024-10-03 09:55 | CM ---
Addendum entered by Emma Martinez RN 10/03/24 16:18:
Discussed transportation options of private vehicle vs w/c van. Patient's spouse will provide transportation.
Addendum entered by Emma Martinez RN 10/03/24 16:01:
IMM reviewed.
Original Note:
Reviewed the chart notes and spoke with the patient at the bedside. Patient interested in SNF/rehab prior to transitioning back to home. Referrals with [facility] sent via [facility]. CM continues to be available to patient/family and is monitoring
medical plan for needs at discharge.
Plan: Discharge to SNF/rehab once bed secured and medically stable. No precert required.
[2024-10-03 11:24] VITALS: BP 137/61; PULSE 89; O2SAT 95
[2024-10-03 16:04] VITALS: BP 121/60
[2024-10-03] MEDS: LIPITOR 40 MG PO (17:13)
[2024-10-03 19:36] LABS: Iron 43 ug/dl (37-170)
[2024-10-03 19:46] LABS: Percent Saturation 16 % (20-50); Total Iron Binding Capacity 267 ug/dl (265-497)
[2024-10-03] MEDS: VASOTEC 20 MG PO (19:50)
[2024-10-03] MEDS: ASPIR LOW (ENTERIC COATED) 81 MG PO (22:10)
[2024-10-03 22:20] VITALS: BP 125/64
[2024-10-04] MEDS: TYLENOL 650 MG PO (00:11)
--- NOTE | 2024-10-04 07:05 | W.PN.HOSP.TC ---
Today's Communication/Plan
-
discharge
Assessment / Plan
Assessment / Plan
Physical Exam
General: No pallor, cyanosis, or jaundice.
HEENT: Throat clear. PERRLA Normocephalic atraumatic
NECK: Supple. No JVD Carotid Bruits
RESPIRATORY: Lungs clear to auscultation. No crackles wheezes stridor
CVS: S1, S2 normal. RRR. No murmur, rub or gallop.
ABDOMEN: Soft, non-tender. No distension. BS+/normal.
EXTREMITIES: LLE wound dressing in place clean dry intact, significant improvement in swelling noted in comparison to initial presentation
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
IMPRESSION:
69F HTN HLD Osteoporosis Neuropathy LE's b/l up to knees p/w LLE pain swelling following fall. Startled by her dog, she twisted and landed on her side with an associate 'pop' sound. Unable to get up from fall, patient contacted EMS services. VSS,
labs unremarkable, imaging noted left midshaft spiral fracture femur.
PLAN:
#left midshaft spiral fracture femur following mechanical fall
#Traumatic fracture likely osteoporosis related
med surg admit
EKGs reviewed
Cardio eval appreciated
Orthopedic eval appreciated ORIF performed 10/01/24 WBAT Lovenox 28 days postop 2-3 wk follow up yoni removal
pain control prn oxycodone mod severe pain, Tylenol prn mild pain, IV dilaudid remains available for severe breakthrough pain
#Acute blood loss anemia post-op
monitor H&H, no need for transfusion at this time
Hgb improving
Iron level wnl
B12 and Folate pending
#Mild Leukocytosis
developed post-op
suspect stress reactive
consistently afebrile, no significant signs of systemic infection
monitored off abx, resolving
#Constipation resolved
bowel regimen
#HTN
cont home Cardizem Enalapril w holding parameters
#HLD
cont statin
PT/OT appreciated SNF rehab
DVT ppx SCD
GI ppx Protonix
Full Code
Medically stable for discharge SNF rehab with outpatient follow up recommendations
Total Time Preparing Discharge __40 minutes including examination of the patient, summary of the hospital stay, instructions for continuing care to all relevant caregivers; and preparation of discharge records, prescriptions, and referral
forms if necessary.
Anticipated Discharge: Today
Subjective/Interval History
-
Date of Service: October 04, 2024
Seen and examined at bedside in no acute distress, sitting up comfortably in chair. Overall reports feeling well. Denies new acute issues. Pain well controlled with current regimen
Objective Data
-
Labs:
Laboratory Results
10/04/24
07:01
WBC Pending
Hgb Pending
Hct Pending
Plt Count Pending
Sodium Pending
Potassium Pending
Chloride Pending
Carbon Dioxide Pending
BUN Pending
Creatinine Pending
Glucose Pending
Calcium Pending
Vital Signs:
Vital Signs
Temp Pulse Resp BP Pulse Ox
98.6 F 100 17 125/64 95
10/03/24 22:20 10/03/24 22:20 10/03/24 22:20 10/03/24 22:20 10/03/24 22:20
I&O
10/03/24 10/04/24 10/05/24
06:59 06:59 06:59
Intake Total 770 / 770 240 / 240
Balance 770 / 770 240 / 240
[2024-10-04 07:15] VITALS: BP 150/89
[2024-10-04] MEDS: OSCAL CAL 500 500 MG PO (07:55)
[2024-10-04] MEDS: CARDIZEM CD 240 MG PO (07:55)
[2024-10-04] MEDS: VASOTEC 20 MG PO (07:55)
[2024-10-04] MEDS: MIRALAX 17 GRAMS PO (07:56)
[2024-10-04] MEDS: VITAMIN D3 (cholecalciferol) 50 MCG PO (07:56)
[2024-10-04] MEDS: COLACE 100 MG PO (07:56)
[2024-10-04] MEDS: PROTONIX 40 MG PO (07:56)
[2024-10-04] MEDS: LOVENOX 40 MG SC (07:56)
[2024-10-04 08:55] LABS: Hematocrit 30.2 % (37.0-47.0); Mean Corp Hgb Conc. 33.1 g/dL (33.0-37.0); Mean Corpuscular Hgb 29.7 pg (27.0-31.0); Mean Corpuscular Volume 89.6 fL (81.0-99.0); Mean Platelet Volume 10.8 fL (7.4-10.4); Platelet Count 265 10^3/uL (130-400); Red Blood Cell Count 3.37 10^6/uL (4.20-5.40); Red Cell Dist. Width 13.7 % (11.5-14.5); White Blood Cell Count 11.5 10^3/uL (4.8-10.8)
[2024-10-04 09:10] LABS: Blood Urea Nitrogen 18 mg/dl (7-17); Calcium 8.7 mg/dl (8.4-10.2); Carbon Dioxide 26 mmol/L (22-30); Chloride 108 mmol/L (98-107); Estimated Creatinine Clearance 51 ml/min; Glucose 113 mg/dl (70-99); Magnesium 2.2 mg/dl (1.6-2.3); Phosphorus 2.9 mg/dl (2.5-4.5); Potassium 4.4 mmol/L (3.5-5.1); Sodium 140 mmol/L (135-145); eGFR > 60.00
--- NOTE | 2024-10-04 10:02 | CM ---
Patient states she is going to [facility] now asking for wheelchair van transportation. CM called to [facility] Liaison and confirmed acceptance at SNF, as well as: Call report to: [phone]/ . CM will continue to follow for discharge
planning needs.
Plan;transfer via wheelchair van to [facility]
--- NOTE | 2024-10-04 12:00 | W.DCSUMMARY ---
Discharge Summary
Discharge Data
Date of Admission: 09/30/24
Date of Discharge: 10/04/24
-
Pending Results: Yes
Additional Pending Results:
Ferritin, B12, Folate
Discharge Plan
-
Patient Disposition: Penitentiary/SNF
Discharge Diagnosis/Procedures: left midshaft spiral fracture femur following mechanical fall
Traumatic fracture likely osteoporosis related
Acute blood loss anemia post-op, resolving
Mild Leukocytosis post-op, likely stress reactive, also resolving without need for antibiotics
Hypertension
Hyperlipidemia
Condition: Fair
Diet: Regular
Activity: With assistance, As tolerated and With Walker
Driving Restrictions: Not until seen by your Dr
Bathing Restrictions: None
Blood Work: Repeat CBC with primary care provider in 1 week of discharge.
Other Services: PT and OT
Activity Restrictions/Additional Instructions:
Please follow up with primary care provider in 1 week of discharge and Orthopedic in 2-3 weeks of discharge.
Lovenox has been prescribed for dvt prophylaxis as per orthopedic recommendation. Last day for Lovenox is 10/29/24.
Tylenol and oxycodone have been prescribed as needed for pain.
Please take medications as prescribed/recommended and follow up with primary care provider and/or other healthcare provider involved in your care for refills and/or further adjustment to your medication regimen as necessary.
Referrals:
Arthur Rodriguez MD [Active, Orthopedics] - in two to three weeks
Floridalma Mckeon MD [Family Provider, Family Practice] - in one week
Prescriptions:
New
enoxaparin 40 mg/0.4 mL Syringe
40 mg SC DAILY 25 Days Qty: 10 0RF
Rx Instructions:
10/29/24 last day for DVT prophylaxis
acetaminophen 325 mg Tablet
650 mg PO Q4HPRN PRN (Reason: mild pain/fever/headache) Qty: 100 0RF
oxycodone 5 mg Tablet
5 mg PO Q6HPRN PRN (Reason: moderate severe pain) Qty: 12 0RF
Continued
atorvastatin 40 MG tablet
40 mg PO QPM
enalapril maleate 10 MG tablet
20 mg PO BID
diltiazem HCl 240 MG capsule,extended release 24 hr
240 mg PO DAILY
psyllium Packet
1 packet PO DAILY
aspirin 81 mg Tablet,Delayed Release (Dr/Ec)
81 mg PO HS
calcium carbonate [Calcium 600] 600 mg calcium (1,500 mg) Tablet
600 mg PO DAILY
docusate sodium [Colace] 100 mg Capsule
300 mg PO HS
omeprazole 20 mg Capsule,Delayed Release(Dr/Ec)
20 mg PO DAILY
cholecalciferol (vitamin D3) [Vitamin D3] 50 mcg (2,000 unit) Tablet
50 mcg PO DAILY
Discontinued
hydrochlorothiazide 12.5 MG capsule
25 mg PO DAILY
Discharge Orders:
Discharge Patient (As Directed); Ordered 10/04/24
Ordered By: Taniya Osei
Discharge Date and Time
Print Language: ITALIAN
[2024-10-04 14:10] VITALS: BP 136/76
[2024-10-04 15:58] LABS: Ferritin 41.6 ng/ml (11.1-264.0)
[2024-10-04 16:48] LABS: Vitamin B12 874 pg/ml (239-931)
[2024-10-04 16:55] LABS: Folate 17.9 ng/ml (2.76-20)
== END 2024-10-04 15:10 | DRG 481 ==
LOC: 2 SOUTH 14:59
PROVIDERS: Physician Assistant; ADMITTING PHYSICIAN Internal Medicine; CONSULT PHYSICIAN Internal Medicine Cardiovascular Disease; CONSULT PHYSICIAN Orthopaedic Surgery; EMERGENCY PHYSICIAN Emergency Medicine; FAMILY PHYSICIAN Family Medicine
PROC: 0QS906Z Reposition Left Femoral Shaft with Intramedullary Internal Fixation Device, Open Approach (ICD-10-PCS; 2024-10-01)
DX: M80.052A Age-related osteoporosis with current pathological fracture, left femur, initial encounter for fracture (principal); D62 Acute posthemorrhagic anemia; K59.00 Constipation, unspecified; I10 Essential (primary) hypertension; E78.00 Pure hypercholesterolemia, unspecified
CPT/HCPCS: 29505; 72170; 72192; 73552; 73590; 76000; 80048; 80053; 82248; 82607; 82728; 82746; 82962; 83540; 83550; 83735; 84100; 85025; 85027; 93005; 96374; 97110; 97116; 97162; 97167; 97535; 99285; C1713; C1769

== ENCOUNTER → 2024-10-08 09:50 | Outpatient (REF) | payer OTHER, MEDICARE, SELFPAY ==
[2024-10-08 10:29] LABS: % Basophils 0.7 % (0-2); % Eosinophils 9.5 % (0-6); % Immature Granulocytes 1.2 % (0-0.5); % Lymphocytes 18.1 % (20.5-51.1); % Monocytes 11.2 % (1.7-9.3); % Neutrophils 59.3 % (42.2-75.2); Absolute Basophils 0.1 10^3/uL (0-0.2); Absolute Immature Granulocytes 0.1 10^3/uL (0-0.05); Absolute Monocytes 1.2 10^3/uL (0.1-0.6); Absolute Neutrophils 6.5 10^3/uL (1.4-6.5); Hematocrit 33.8 % (37.0-47.0); Hemoglobin 10.8 g/dL (12.0-16.0); Mean Corpuscular Hgb 29.9 pg (27.0-31.0); Mean Corpuscular Volume 93.6 fL (81.0-99.0); Mean Platelet Volume 10.9 fL (7.4-10.4); Nucleated Red Blood Cells % 0 %; Platelet Count 391 10^3/uL (130-400); Red Blood Cell Count 3.61 10^6/uL (4.20-5.40); Red Cell Dist. Width 15.2 % (11.5-14.5); White Blood Cell Count 10.9 10^3/uL (4.8-10.8)
[2024-10-08 10:36] LABS: ALT (SGPT) 78 U/L (0-35); AST (SGOT) 55 U/L (14-36); Albumin 3.8 g/dl (3.5-5.0); Alkaline Phosphatase 102 U/L (38-126); Blood Urea Nitrogen 18 mg/dl (7-17); Calcium 8.8 mg/dl (8.4-10.2); Carbon Dioxide 28 mmol/L (22-30); Chloride 110 mmol/L (98-107); Glucose 97 mg/dl (70-99); Magnesium 2.3 mg/dl (1.6-2.3); Potassium 4.6 mmol/L (3.5-5.1); Sodium 141 mmol/L (135-145); Total Bilirubin 1.4 mg/dl (0.2-1.3); Total Protein 6.2 g/dl (6.3-8.2); eGFR > 60.00
== END ==
LOC: OLABWHC 09:50
PROVIDERS: ATTENDING PHYSICIAN Family Medicine
DX: E78.5 Hyperlipidemia, unspecified (principal); I10 Essential (primary) hypertension; D64.9 Anemia, unspecified
CPT/HCPCS: 36415; 80053; 83735; 85025

== ENCOUNTER → 2025-01-03 07:03 | Outpatient (REF) | payer MEDICARE, OTHER, SELFPAY | LOC: HWRAD 07:03 | PROVIDERS: ATTENDING PHYSICIAN Internal Medicine Gastroenterology; FAMILY PHYSICIAN Family Medicine; REFERRING PHYSICIAN Student in an Organized Health Care Education/Training Program | DX: R79.89 Other specified abnormal findings of blood chemistry (principal) | CPT/HCPCS: 72072; 72100; 76700 ==

== ENCOUNTER → 2025-02-28 08:32 | Outpatient (REF) | payer MEDICARE, OTHER, SELFPAY | LOC: HWRAD 08:32 | PROVIDERS: ATTENDING PHYSICIAN Student in an Organized Health Care Education/Training Program; FAMILY PHYSICIAN Family Medicine | DX: E55.9 Vitamin D deficiency, unspecified (principal); E83.52 Hypercalcemia; M15.9 Polyosteoarthritis, unspecified; M81.0 Age-related osteoporosis without current pathological fracture; R20.2 Paresthesia of skin; R29.898 Other symptoms and signs involving the musculoskeletal system; R82.994 Hypercalciuria; S32.040S Wedge compression fracture of fourth lumbar vertebra, sequela; Z13.29 Encounter for screening for other suspected endocrine disorder; Z13.820 Encounter for screening for osteoporosis; Z79.899 Other long term (current) drug therapy | CPT/HCPCS: 77080; 77081 ==